=== PATIENT | male | born 2000 ===

== ENCOUNTER 2018-06-08 19:29 | Emergency (ER) | payer OTHER, SELFPAY ==
[2018-06-08 19:34] VITALS: TEMP 37
--- NOTE | 2018-06-08 19:42 | DI.RAD_ITS ---
SYMPTOMS/DIAGNOSIS: LATERAL ANKLE PAIN S/P FALL LEFT ANKLE: Three views. No acute fracture or dislocation is seen. There is soft tissue swelling about the ankle laterally. IMPRESSION: No acute fracture or dislocation.
[2018-06-08] MEDS: Ibuprofen 600 MG TAB PO (20:08)
--- NOTE | 2018-06-08 20:20 | W.ED.GENAD ---
Discharge Plan Disposition Patient Disposition: HOME Condition: Stable Discharge Details Chief Complaint: Orthopedic Clinical Impression: Left ankle sprain Primary Care Provider: Radha,Local ED Provider: Romeo Pérez Discharge Instructions Instructions: Ankle Sprain (ED), Crutch Instructions (ED), RICE Therapy (ED) Additional Instructions: He may continue to use [id number] ibuprofen or acetaminophen as needed for pain control. Just take as directed on packaging. You may use crutches as needed for discomfort and slowly advance activity as tolerated over the next 2-3 days. If not improving over the next 2 weeks please call orthopedist for arrangement of follow-up appointment. It is recommended that you wear ankle supportive brace for the next 2-4 weeks Stand Alone Forms: Work Release Referrals: Hugo Luis MD [ [facility] STAFF PHYSICIAN] - Diony Diaz MD [ [facility] STAFF PHYSICIAN] - Todd Watts MD [ [facility] STAFF PHYSICIAN] - Discharge Data Discharge Date/Time-TO BE ENTERED AT DEPARTURE: 06/08/18 20:53 Medical Decision Making Patient presenting the emergency department for chief complaint of left ankle pain. Patient states slip and fall on ice and now has lateral ankle pain and swelling. Patient has not attempted to ambulate on it as he states significant discomfort. Assessment shows swelling and lateral malleolus discomfort to palpation. Plan to perform radiological imaging to rule out acute fracture and give ibuprofen pending result After review of radiological imaging along with radiologist interpretation showing no acute fracture which I agree with the interpretation. Patient was given a stirrup ankle support as he typically wears boots and I feel that this would be more tolerated and more supportive for him. Patient attempted to ambulate through the department and stated that he felt unstable in his gait so he was given crutches. Patient encouraged to use these over the next 2-3 days and then slowly advance activity as tolerated. Patient encouraged to follow-up with orthopedist if not improving over the next 2 weeks and to continue to wear supportive brace which he does state decreases discomfort. After discussion of diagnosis and plan of care patient has no further needs, questions, or concerns and states clear understanding to return to the emergency department for any worsening symptoms. HPI General Mode of arrival: ambulatory. Date/Time Provider Initiated Documentation: 06/08/18 19:42. Limitations to Documentation: no limitations. Information obtained by: patient. History of Present Illness 18 year old M presents to the emergency department with the chief complaint of fall left ankle pain, described as moderate, with intensity rated at 8. Quality is described as sharp, and is localized to the left and lower extremity. Patient started experiencing this minute(s) (30) and it has been constant. No relieving factors improve symptom(s), Movement worsens symptoms . Patient notes no other symptoms.. Patient did receive the following treatments prior to arrival, none Related Data Allergies Allergy/AdvReac Type Severity Reaction Status Date / Time No Known Allergies Allergy Unverified 06/08/18 19:36 General Stated Complaint: Orthopedic TAY: 4 Review of Systems Constitutional Denies frequent falls Cardiovascular Denies syncope Musculoskeletal Reports as per HPI, Denies numbness and Denies tingling Neurologic Denies syncope, Denies frequent falls, Denies numbness and Denies tingling PFSH Social History Smoking/Tobacco Use Status: Current every day Social History Smoking/Tobacco Use Status: Current every day Exam Const General: cooperative, healthy appearing and no acute distress Orientation: alert, awake and oriented x3 Resp Effort & Inspection: normal respiratory effort and able to speak in complete sentences Cardio Rate: regular rate Rhythm: regular rhythm Extrem Left lower extremity: normal capillary refill, knee Details: normal to inspection; no tenderness, lower leg Details: normal to inspection; no tenderness, ankle Details: tenderness Location: of the lateral malleolus and swelling Details: medially; ROM normal, no abrasions and no crepitus and foot Details: normal capillary refill, normal to inspection and toes with normal ROM; no tenderness Course Vital Signs Temperature 37 C 06/08/18 19:34 Temperature 37 C 06/08/18 19:34 Temperature Source Skin 06/08/18 19:34 Respiratory Effort 06/08/18 19:38
--- NOTE | 2018-06-08 20:23 | DI.VRAD_ITS ---
EXAM: XR Left Ankle Complete, 3 or more Views EXAM DATE/TIME: 06/08/2018 7:43 PM CLINICAL HISTORY: 17 years old, male; Pain; Ankle; Left; Patient HX: Lateral ankle pain / fall TECHNIQUE: XR Left ankle 3 or more views. COMPARISON: No relevant prior studies available. FINDINGS: Bones/joints: No acute fracture or subluxation. Soft tissues: Lateral ankle soft tissue swelling. IMPRESSION: No acute bony pathology. Dictated and Authenticated by: Liza Weaver MD. Ordering:RIN HERNÁNDEZ MD
== END 2018-06-08 20:53 | disposition home or self-care (01) ==
LOC: ER 21:04
PROVIDERS: Emergency Provider Nurse Practitioner Family
DX: S93.402A Sprain of unspecified ligament of left ankle, initial encounter (principal); W00.0XXA Fall on same level due to ice and snow, initial encounter
CPT/HCPCS: 99282; 73610; E0114; L4350